=== PATIENT | female | born 1985 | race Caucasian/White ===

== ENCOUNTER 2017-09-02 12:29 | Emergency (ER) | payer OTHER ==
[~2017-09-02] VITALS: Ht 160 cm; Wt 56.4 kg
[2017-09-02 12:34] VITALS: BP 103/63
--- NOTE | 2017-09-02 12:39 | NUR ---
PT AMBULATED TO BED 1
--- NOTE | 2017-09-02 12:41 | NUR ---
PT COMES TO ED C/O MOUTH PAIN FOR 4 DAYS. DENIES TRAUMA. PT HAS OPEN SORES INSIDE MOUHTS ON LIPS AND GUMS, MAKING IT DIFFICULT TO TAKE ANYTHING ORAL. ALSO REPORTS FEVER AND CHILLS RECENTLY. AFEBRILE UPON ASSESSMENT. NAD NOTED/STATED OTHERWISE
[2017-09-02 13:05] VITALS: BP 104/65
--- NOTE | 2017-09-02 13:06 | NUR ---
Patient discharged with v/s stable. Written and verbal after care instructions given and explained. Patient alert, oriented and verbalized understanding of instructions. Ambulatory with steady gait. All questions addressed prior to discharge. ID band removed. Patient advised to follow up with PMD. Rx of MEDROL AND CEPACOL given. Patient educated on indication of medication including possible reaction and side effects. Opportunity to ask questions provided and answered.
== END 2017-09-02 13:06 | disposition home or self-care (01) ==
LOC: MED 12:29
DX: B08.5 Enteroviral vesicular pharyngitis (principal)
CPT/HCPCS: 99283